=== PATIENT | female | born 1990 | race Caucasian/White ===

== ENCOUNTER → 2021-11-15 | Outpatient (CLI) | payer OTHER ==
--- NOTE | 2021-11-16 09:28 | KCIC ---
EXAMINATION: MRI LEFT FOOT WITHOUT IV CONTRAST CLINICAL HISTORY: LEFT FOOT LISFRANC INJURY. Pt injured medial left midfoot walking down stairs 10 da ys ago. TECHNIQUE: Multiplanar multisequential images obtained through the foot without intravenous contrast. COMPARISON: Bilateral foot radiographs 11/07/2021, left foot radiographs 11/06/2021 FINDINGS: Nondisplaced oblique coronal fracture through the medial cuneiform with intra-articular extension int o the plantar first TMT joint. Marrow edema in the more dorsal and lateral aspects of the distal midd le and lateral cuneiforms, cuboid, and second and fourth metatarsal bases without visualized fracture , likely bone contusions. Fiber irregularity and increased signal in the Lisfranc ligament, highly suspicious for complete tear . Surrounding soft tissue edema. Flexor and extensor tendons within normal limits. Plantar aponeurosi s within normal limits. Muscle bulk and signal intensity otherwise within normal limits. Mild subcuta neous edema along the medial ankle. IMPRESSION: Findings highly suspicious for complete tear of the Lisfranc ligament. Nondisplaced intra-articular medial cuneiform fracture and bone contusions in the midfoot as georgie dTerrance Electronically signed by: Jerry Clark DO (11/16/2021 9:26 AM) [id number]
== END ==
LOC: KCIC MRI 14:24
PROVIDERS: ATTEND Podiatrist
DX: S93.622A Sprain of tarsometatarsal ligament of left foot, initial encounter (principal); S92.245A Nondisplaced fracture of medial cuneiform of left foot, initial encounter for closed fracture; T14.8XXA Other injury of unspecified body region, initial encounter; X58.XXXA Exposure to other specified factors, initial encounter; Y93.89 Activity, other specified; Y92.89 Other specified places as the place of occurrence of the external cause; Y99.8 Other external cause status
CPT/HCPCS: 73718